=== PATIENT | female | born 1965 | race Caucasian/White ===

== ENCOUNTER 2017-02-10 09:46 | Observation (INO) | payer SELFPAY ==
[2017-02-10 09:57] VITALS: BMI 27.4
[2017-02-10] MEDS ORDERED: DEMEROL INJ IVP ONE (10:34)
[2017-02-10] MEDS ORDERED: ZOFRAN INJ 4 MG VIAL IVP ONE (10:34)
--- NOTE | 2017-02-10 10:36 | DR.GENAD ---
HPI - PCP Primary Care Physician: ASIM - HPI Comment HPI Comment: PATIENT HAVE EPIGASTRIC PAIN RADIATING TO BACK ON THE RIGHT SIDE. DIAGNOSE WITH H PYLORI AND PLACE ON MED THAT PATIENT IS TAKING, NO IMPROVEMENT. HER CONDITION IS GETTING WORSE. - Complaint/Symptoms Chief Complaint Doctors Comments: ABDOMINAL PAIN TIMES 5 DAYS WITH NAUSEA AND VOMITING. Chief Complaint:: ABDOMINAL PAIN IN UPPER GASTRIC REGION. SUDDEN ONSET LAST WEEKEND TO [facility] DOUBLED OVER WITH PAIN. H-PYLORI AND ULCER. GAVE MEDS AND SENT HOME. - Nurses notes reviewed Nurses Notes Review: Yes - Source History Provided: Patient - Mode of Arrival Mode of Arrival: Ambulatory - Timing Onset of Chief Complaint: 02/05/17 Came on: Suddenly - Duration Duration: Constant Duration: Days PMH - PMH Past Medical History: No Past Surgical History: Yes Surgical History: , Hysterectomy - Family History History of Family Medical Conditions: Yes Family Medical History: Diabetes Mellitus, Coronary Artery Disease, Hypertension - Social History Does patient currently use any type of tobacco product: Yes Have you used tobacco products in the last 12 months: Yes Type of Tobacco Use: Cigarettes How many years tobacco product used: 20 Does any household member use tobacco: No Alcohol Use: Rarely Do you use any recreational Drugs:: No Lives With: Family Lives Where: Home - infectious screening In the last 2 months have you had wt loss of >10#?: NO Have you had fever, night sweats or hemotysis?: No Have you traveled outside the country in the last 6 months?: No Isolation: Standard ROS - Review of Systems Constitutional: Weakness, Fatigue, Loss of Appetite. negative: Chills, Fever Eyes: No Symptoms Reported. negative: Eye Pain, Discharge ENTM: No Symptoms Reported. negative: Ear Pain, Nose Discharge, Nose Congestion , Throat Pain Respiratoy: No Symptoms Reported. negative: Productive Cough, Non-Productive Cough, Short of Breath, Wheezing, Hemoptysis Cardiovascular: negative: Chest Pain Gastrointestinal/Abdominal: Abdominal Pain, Nausea, Vomiting. negative: Constipation, Diarrhea Genitourinary: No Symptoms Reported. negative: Dysuria, Frequency, Hematuria Neurological: Headache, Weakness, Dizziness Musculoskeletal: Muscle Pain Integumentary: No Symptoms Reported Hematologic/Lymphatic: No Symptoms Reported Endocrine: No Symptoms Reported All Other Systems: Reviewed and Negative PE - Vital Signs Vitals: Temperature 97.7 F Pulse Rate 86 Respiratory Rate 20 Blood Pressure 142/74 O2 Sat by Pulse Oximetry 100 - General Limitations: No Limitations General Appearance: Alert - Head Head Exam: Normal Inspection - Eyes Eye exam: Normal Appearance - ENT ENT Exam: Normal External Ear Exam External Ear Exam: Normal External Inspection TM/Canal Exam: Bilateral Normal Nose Exam: Normal Nose Exam Mouth Exam: Normal Inspection Throat Exam: Normal Inspection - Neck Neck Exam: Normal Inspection - Chest Chest Inspection: Symmetric Chest Wall Rise - Respiratory Respiratory Exam: Normal Lung Sounds Bilat Respiratory Exam: Bilateral Clear to Auscultation - Cardiovascular Cardiovascular Exam: Regular Rate, Normal Rhythm, Normal Heart Sounds - Abdominal Exam Abdominal Exam: Normal Bowel Sounds, Soft, Tenderness Abdominal Tenderness: RUQ, Epigastrium - Extremities Extremities Exam: Normal Inspection - Back Back Exam: Normal Inspection - Neurologic Neurological Exam: Alert, Oriented X3 - Psychiatric Psychiatric Exam: Normal Affect, Normal Mood - Skin Skin Exam: Normal Color MDM - Additional Information Additional Information Obtained From: Family - Differential Diagnosis Differential Diagnosis: EPIGASTRIC PAIN, CHOLECYSTITIS, CHOLELITHIASIS, GASTRITIS, BOWEL OBST, DEHY Course - Treatment Treatment: SEE ORDERS. - Consultation Consultation Comments: DISCUSS PATIENT WITH DR. LANDRY. HE WILL ADMIT PATIENT. - Education/Counseling Education/Counseling: Patient, Family, Education Educated On: Treatment, Diagnosis ROR - Labs Reviewed Laboratory Results Reviewed?: Yes Result Diagrams: 02/11/17 03:40 02/11/17 03:40 Laboratory: WBC 10.0 X10^3/uL (3.6-10.0) 02/10/17 10:45 RBC 4.82 X10^6/uL (3.5-5.4) 02/10/17 10:45 Hgb 14.7 g/dL (12.0-16.0) 02/10/17 10:45 Hct 41.7 % (36.0-47.0) 02/10/17 10:45 MCV 86.6 fL (80.0-100.0) 02/10/17 10:45 MCH 30.6 pg (27.0-34.0) 02/10/17 10:45 MCHC 35.3 g/dL (33.0-35.0) H 02/10/17 10:45 RDW 12.5 % (11.6-16.5) 02/10/17 10:45 Plt Count 235 X10^3/uL (150.0-450.0) 02/10/17 10:45 MPV 9.8 fL (7.4-11.0) 02/10/17 10:45 Neut % 67.5 % (42.0-75.0) 02/10/17 10:45 Lymph % 24.0 % (21.0-51.0) 02/10/17 10:45 [place] % 7.5 % (0.0-13.0) 02/10/17 10:45 Eos % 0.5 % (0.9-2.9) L 02/10/17 10:45 Baso % 0.5 % (0.2-1.0) 02/10/17 10:45 Neut # 6.7 x10^3/uL (2.2-4.8) H 02/10/17 10:45 Lymph # 2.4 X10^3/uL (1.3-2.9) 02/10/17 10:45 [place] # 0.7 x10^3/uL (0.3-0.8) 02/10/17 10:45 Eos # 0.0 x10^3/uL (0.0-0.2) 02/10/17 10:45 Baso # 0.0 X10^3/uL (0.0-0.1) 02/10/17 10:45 Absolute Nucleated RBC 0.0 /100WBC 02/10/17 10:45 Sodium 139 mmol/L (136-145) 02/10/17 10:45 Corrected Sodium TNP 02/10/17 10:45 Potassium 3.5 mmol/L (3.5-5.1) 02/10/17 10:45 Chloride 104 mmol/L (98-107) 02/10/17 10:45 Carbon Dioxide 28.5 mmol/L (21-32) 02/10/17 10:45 BUN 9 mg/dL (7-18) 02/10/17 10:45 Creatinine 0.74 mg/dL (0.55-1.02) 02/10/17 10:45 Est GFR (MDRD) Af Amer > 60 (>60) 02/10/17 10:45 Est GFR (MDRD) Non-Af > 60 (>60) 02/10/17 10:45 Glucose 103 mg/dL (65-99) H 02/10/17 10:45 Calcium 8.8 mg/dL (8.5-10.1) 02/10/17 10:45 Corrected Calcium TNP 02/10/17 10:45 Total Bilirubin 0.80 mg/dL (0.2-1.0) 02/10/17 10:45 AST 51 Units/L (15-37) H 02/10/17 10:45 ALT 60 Units/L (12-78) 02/10/17 10:45 Alkaline Phosphatase 90 Units/L (46-116) 02/10/17 10:45 Total Protein 7.4 g/dL (6.4-8.2) 02/10/17 10:45 Albumin 3.5 g/dL (3.4-5.0) 02/10/17 10:45 Globulin 3.9 g/dL (2.5-4.5) 02/10/17 10:45 Albumin/Globulin Ratio 0.9 Ratio (1.1-2.1) L 02/10/17 10:45 Amylase 46 Units/L (25-115) 02/10/17 10:45 Lipase 148 Units/L (73-393) 02/10/17 10:45 - XRAY XRAY Interpreted by: Radiologist XRAY Findings: REPORT DISCUSS WITH PATIENT. - Diagnosis Discharge Problem: Acute cholecystitis, Dehydration Cholelithiasis Qualifiers: Cholelithiasis location: gallbladder Cholecystitis presence: with cholecystitis Cholecystitis acuity: acute Biliary obstruction: without biliary obstruction Qualified Code(s): K80.00 - Calculus of gallbladder with acute cholecystitis without obstruction Nausea & vomiting Qualifiers: Vomiting type: bilious vomiting Qualified Code(s): R11.14 - Bilious vomiting - Discharge Plan Disposition: ADMITTED INPATIENT Condition: Stable - Follow ups/Referrals - Instructions
[2017-02-10] MEDS ORDERED: DEMEROL INJ ONE (10:38)
[2017-02-10] MEDS ORDERED: ZOFRAN INJ 4 MG VIAL ONE (10:38)
[2017-02-10 11:09] LABS: ALANINE AMINOTRANSFERASE 60 Units/L (12-78); ALBUMIN 3.5 g/dL (3.4-5.0); ALKALINE PHOSPHATASE 90 Units/L (46-116); AMYLASE 46 Units/L (25-115); ASPARTATE AMINO TRANSFERASE 51 Units/L (15-37); BLOOD UREA NITROGEN 9 mg/dL (7-18); CALCIUM 8.8 mg/dL (8.5-10.1); CARBON DIOXIDE 28.5 mmol/L (21-32); CHLORIDE 104 mmol/L (98-107); CREATININE 0.74 mg/dL (0.55-1.02); GLUCOSE 103 mg/dL (65-99); LIPASE 148 Units/L (73-393); SODIUM 139 mmol/L (136-145); TOTAL PROTEIN 7.4 g/dL (6.4-8.2); eGFR BLACK RACES > 60 (>60); eGFR NON BLACK RACES > 60 (>60)
[2017-02-10 11:34] LABS: BASOPHILS % (AUTO) 0.5 % (0.2-1.0); EOSINOPHILS % (AUTO) 0.5 % (0.9-2.9); HEMATOCRIT 41.7 % (36.0-47.0); HEMOGLOBIN 14.7 g/dL (12.0-16.0); LYMPHOCYTES # (AUTO) 2.4 X10^3/uL (1.3-2.9); MEAN CORPUSCULAR HEMOGLOBIN 30.6 pg (27.0-34.0); MEAN CORPUSCULAR HGB CONC 35.3 g/dL (33.0-35.0); MEAN CORPUSCULAR VOLUME 86.6 fL (80.0-100.0); MEAN PLATELET VOLUME 9.8 fL (7.4-11.0); MONOCYTES # (AUTO) 0.7 x10^3/uL (0.3-0.8); MONOCYTES % (AUTO) 7.5 % (0.0-13.0); NEUTROPHILS # (AUTO) 6.7 x10^3/uL (2.2-4.8); NEUTROPHILS % (AUTO) 67.5 % (42.0-75.0); PLATELET COUNT 235 X10^3/uL (150.0-450.0); RED BLOOD COUNT 4.82 X10^6/uL (3.5-5.4); RED CELL DISTRIBUTION WIDTH 12.5 % (11.6-16.5)
--- NOTE | 2017-02-10 11:38 | CT ---
HISTORY: Nausea, vomiting, right upper quadrant pain Study: CT abdomen pelvis without contrast Comparison: None Technique: Axial non contrast images with coronal and sagittal reformats. Dose reduction procedures were used with MA/kv adjusted for body size. This examination is limited due to the lack of intraven ous and oral contrast. Findings: The lung bases are clear. The liver, spleen, adrenal glands, and pancreas are within normal limits t o the limitations of an unenhanced examination. The gallbladder is distended. Cholelithiasis is pres ent. There appears also to be some thickening of the gallbladder wall suggestive of developing lynne cystitis. The kidneys are unobstructed and without stones. No ureteral calculi are identified. The a ppendix is not identified with absolute certainty. There are no secondary signs of appendicitis pres ent. No enlarged intraperitoneal or retroperitoneal lymphadenopathy is identified. There are no find ings suggestive of diverticulitis or colitis. Examination of the pelvis demonstrated no evidence for pelvic masses, pelvic fluid, or pelvic lymphadenopathy. No bladder abnormality is identified. No si gnificant skeletal abnormality is identified. IMPRESSION: Distended gallbladder containing stones and demonstrating gallbladder wall thickening suggestive of developing acute cholecystitis Reported By:
[2017-02-10] MEDS ORDERED: NS 1000 ML 1,000 ML IV ONE (12:43)
[2017-02-10] MEDS ORDERED: NS 1000 ML 1,000 ML ONE (12:46)
[2017-02-10 13:23] LABS: BILIRUBIN,URINE NEGATIVE (NEGATIVE); BLOOD/HEMOGLOBIN,URINE 2+ (NEGATIVE); GLUCOSE, URINE NEGATIVE (NEGATIVE); KETONES,URINE NEGATIVE (NEGATIVE); LEUKOCYTE ESTERASE ,URINE NEGATIVE (NEGATIVE); NITRITES,URINE NEGATIVE (NEGATIVE); PROTEIN,URINE NEGATIVE (NEGATIVE); UROBILINOGEN,URINE 1+ (NORMAL)
[2017-02-10 13:41] LABS: APPEARANCE,URINE CLEAR (CLEAR); COLOR,URINE YELLOW (YELLOW)
[2017-02-10 13:42] LABS: AMORPHOUS SEDIMENT,UR TRACE /HPF (NEGATIVE); BACTERIA,URINE TRACE /HPF (NEGATIVE); SQUAMOUS EPITHELIAL CELL,UR FEW /HPF (NEGATIVE)
[2017-02-10] MEDS ORDERED: TYLENOL 325 MG TAB PO PRN (13:59)
[2017-02-10] MEDS: NS 1000 ML 1,000 ML IV SCH ×2 (14:39→20:20)
[2017-02-10] MEDS: FLAGYL IV PREMIX 500 MG BAG 500 MG/100 ML BAG IV SCH ×2 (14:52→20:16)
[2017-02-10] MEDS: DEMEROL INJ IVP PRN ×3 (14:52→23:33)
[2017-02-10] MEDS: PHENERGAN INJ 25 MG IVP PRN ×2 (14:53→21:07)
[2017-02-10] MEDS ORDERED: ZOSYN VIAL 3.375 GM 3.375 GM in NS 100 ML IV + SPIKE MINIBAG* 100 ML IV SCH (15:00)
[2017-02-10] MEDS: PROTONIX INJ 40 MG VIAL IVP SCH (15:21)
[2017-02-10] MEDS: PEPCID 20 MG IV PREMIX* 20 MG/50 ML BAG IV SCH ×2 (15:21→20:12)
[2017-02-10] MEDS ORDERED: NS 100 ML IV 100 ML IV ONE (15:45)
[2017-02-10] MEDS: CIPRO IV 400 MG PREMIX* 400 MG/200 ML IV.SOLN. IV SCH (20:18)
[2017-02-11] MEDS: NS 1000 ML 1,000 ML IV SCH ×4 (01:05→21:34)
[2017-02-11] MEDS: FLAGYL IV PREMIX 500 MG BAG 500 MG/100 ML BAG IV SCH ×4 (03:05→20:14)
[2017-02-11] MEDS: PHENERGAN INJ 25 MG IVP PRN ×3 (04:33→22:10)
[2017-02-11] MEDS: DEMEROL INJ IVP PRN ×3 (04:34→13:02)
[2017-02-11 05:34] LABS: BASOPHILS # (AUTO) 0.1 X10^3/uL (0.0-0.1); BASOPHILS % (AUTO) 0.8 % (0.2-1.0); EOSINOPHILS # (AUTO) 0.1 x10^3/uL (0.0-0.2); EOSINOPHILS % (AUTO) 1.6 % (0.9-2.9); HEMOGLOBIN 13.1 g/dL (12.0-16.0); LYMPHOCYTES # (AUTO) 2.5 X10^3/uL (1.3-2.9); LYMPHOCYTES % (AUTO) 34.3 % (21.0-51.0); MEAN CORPUSCULAR HEMOGLOBIN 31.1 pg (27.0-34.0); MEAN CORPUSCULAR HGB CONC 35.4 g/dL (33.0-35.0); MEAN CORPUSCULAR VOLUME 87.8 fL (80.0-100.0); MEAN PLATELET VOLUME 9.7 fL (7.4-11.0); MONOCYTES # (AUTO) 0.7 x10^3/uL (0.3-0.8); MONOCYTES % (AUTO) 9.3 % (0.0-13.0); PLATELET COUNT 199 X10^3/uL (150.0-450.0); RED BLOOD COUNT 4.22 X10^6/uL (3.5-5.4); WHITE BLOOD COUNT 7.4 X10^3/uL (3.6-10.0)
[2017-02-11 05:46] LABS: ALANINE AMINOTRANSFERASE 51 Units/L (12-78); ALBUMIN 2.8 g/dL (3.4-5.0); ALKALINE PHOSPHATASE 78 Units/L (46-116); AMYLASE 39 Units/L (25-115); ASPARTATE AMINO TRANSFERASE 34 Units/L (15-37); BLOOD UREA NITROGEN 6 mg/dL (7-18); CARBON DIOXIDE 28.4 mmol/L (21-32); CHLORIDE 104 mmol/L (98-107); CREATININE 0.73 mg/dL (0.55-1.02); GLUCOSE 100 mg/dL (65-99); LIPASE 135 Units/L (73-393); SODIUM 139 mmol/L (136-145); TOTAL PROTEIN 6.4 g/dL (6.4-8.2); eGFR BLACK RACES > 60 (>60); eGFR NON BLACK RACES > 60 (>60)
[2017-02-11] MEDS: PROTONIX INJ 40 MG VIAL IVP SCH (08:22)
[2017-02-11] MEDS: PEPCID 20 MG IV PREMIX* 20 MG/50 ML BAG IV SCH ×2 (08:22→20:13)
[2017-02-11] MEDS: CIPRO IV 400 MG PREMIX* 400 MG/200 ML IV.SOLN. IV SCH ×2 (08:22→20:15)
[2017-02-11] MEDS: ZOFRAN INJ 4 MG VIAL IVP PRN (08:23)
[2017-02-11] MEDS ORDERED: NORCURON INJ 10 MG VIAL ONE (09:43)
[2017-02-11] MEDS ORDERED: ROBINUL ONE (09:43)
[2017-02-11] MEDS ORDERED: DIPRIVAN VIAL ONE (09:43)
[2017-02-11] MEDS ORDERED: DYLOJECT INJ ONE (09:43)
[2017-02-11] MEDS ORDERED: XYLOCAINE 2 % (PLAIN) ONE (09:43)
[2017-02-11] MEDS ORDERED: QUELICIN (OR ANECTINE) ONE (09:43)
[2017-02-11] MEDS ORDERED: VERSED ONE (09:43)
[2017-02-11] MEDS ORDERED: NEOSTIGMINE INJ ONE (09:43)
[2017-02-11] MEDS ORDERED: ZOFRAN INJ 4 MG VIAL ONE (09:43)
[2017-02-11] MEDS ORDERED: SUPRANE IN ONE (09:43)
--- NOTE | 2017-02-11 10:40 | DR.H&P ---
H&P - History & Physical for Day of: H&P Date: 02/10/17 - Chief Complaint Chief Complaint: abdominal pain - Allergies Allergies/Adverse Reactions: Allergies Allergy/AdvReac Type Severity Reaction Status Date / Time bee pollen Allergy Intermediate Verified 02/10/17 09:57 - History of Present Illness History of Present Illness: Patient is a 51 yo female who presented to the emergency room with complaints of epigastric pain that is radiating to her back on the right side, patient was previously diagnosed with h-pylori and was placed on placed on treatment for this and has not had any improvement. She also has complaints of nausea and vomiting. Patient has a history of GERD. On arrival to the ER vital signs were 97.7. 86, 20, 100%, 142/74. Labs are within normal limits with the exception of MCHC 35.3, Eos% 0.5, Neut# 6.7, Glucose 103 , AST 51, Albumin/Globulin Ratio 0.9. Abdomen/Pelvis CT showed distended gallbladder containing stones and demonstrating gallbladder wall thickening suggestive of developing acute cholecystitis. Patient was admitted with diagnosis of cholecystitis. Patient started on Tylenol 650mg Po Q4hr PRN, Cipro 400mg IV Q12hr, Pepcid 20mg IV Q12, Demerol 25mg IV q4hr PRN, Flagyl 500mg IV Q6hr, Zofran 4mg IV Q6hr PRN, Protonix 40mg IV Daily, Phenergan 12.5mg IV Q6hr PRN, NS@125ml/hr. We are going to continue to monitor patient and keep her pain under control and administer IV Antibiotics. We will follow up with repeat labs in the am. - Past Medical History Past Medical History: GERD - Past Surgical History Surgical History: , Hysterectomy - Family History Family Medical History: Diabetes Mellitus, Coronary Artery Disease, Hypertension - Social History Does patient currently use any type of tobacco product: Yes Have you used tobacco products in the last 12 months: Yes Type of Tobacco Use: Cigarettes How many years tobacco product used: 20 Does any household member use tobacco: No Alcohol Use: Rarely Drug Use: None - Medications Home Medications: Amoxicillin [AMOXIL CAP 500 MG *] 1 cap PO DAILY 02/10/17 [History Confirmed ] Clarithromycin [CLARITHROMYCIN 500 MG TAB *] 1 tab PO Q12H 02/10/17 [History Confirmed 02/10/17] Esomeprazole Magnesium [Nexium 20 mg] 1 cap PO Q12H 02/10/17 [History Confirmed 02/10/17] - Review of Systems Constitutional: Weakness Eyes: No Symptoms Reported ENT: No Symptoms Reported Respiratory: No Symptoms Reported Cardiovascular: No Symptoms Reported Gastrointestinal: Nausea, Vomiting, Abdominal Pain Genitourinary: No Symptoms Reported Musculoskeletal: No Symptoms Reported Skin: No Symptoms Reported Neurological: No Symptoms Reported - Physical Exam Vital Signs: 97.7. 86, 20, 100%, 142/74 Oriented: Normal Eyes: Normal Ear: Normal Nose: Normal Throat: Normal Respiratory: Clear Throughout Cardiovascular: Normal : Normal Auscultation: Bowel Sounds: Increased Palpation: Normal Tenderness: RUQ, Epigastric Skin: Normal Musculoskeletal: Normal Psychiatric: Normal Mood Description: Calm, Appropriate Affect: Normal Speech Pattern: Clear, Appropriate - Assessment/Plan (1) Acute cholecystitis Status: Acute Plan: Cipro 400mg IV Q12hr, Pepcid 20mg IV Q12, Demerol 25mg IV q4hr PRN, Flagyl 500mg IV Q6hr, Zofran 4mg IV Q6hr PRN, Protonix 40mg IV Daily, Phenergan 12.5mg IV Q6hr PRN, NS@125ml/hr (2) Cholelithiasis Qualifiers: Cholelithiasis location: gallbladder Cholecystitis presence: with cholecystitis Cholangitis presence: C Cholecystitis acuity: acute Cholangitis acuity: C Biliary obstruction: without biliary obstruction Qualified Code(s): K80.00 - Calculus of gallbladder with acute cholecystitis without obstruction Status: Acute Plan: Cipro 400mg IV Q12hr, Pepcid 20mg IV Q12, Demerol 25mg IV q4hr PRN, Flagyl 500mg IV Q6hr, Zofran 4mg IV Q6hr PRN, Protonix 40mg IV Daily, Phenergan 12.5mg IV Q6hr PRN, NS@125ml/hr (3) Nausea & vomiting Qualifiers: Vomiting type: bilious vomiting Vomiting Intractability: V Qualified Code (s): R11.14 - Bilious vomiting Status: Acute Plan: Zofran 4mg IV Q6hr PRN, Protonix 40mg IV Daily, Phenergan 12.5mg IV Q6hr PRN,
--- NOTE | 2017-02-11 10:41 | PCM.PROG ---
Progress Note - Progress Note for Day of Date: 02/11/17 - Subjective Subjective: Patient states she is still experiencing a good bit of pain and nausea, Physical exam reveals epigastric and right upper quadrant tenderness. We are going to make a surgical consult to have her gallbladder removed. Vital signs this am 98.1, 68, 16, 96%, 102/57. Labs within normal limits with the exception of MCHC 35.4, BUN 6, Glucose 100, Calcium 8.0, Albumin 2.8, Albumin/ globulin ratio 0.8. We will follow up with patient in the am with repeat labs and continue current treatment plan and await surgical consult. - Past Medical Family Social History Past Med/Fam/Surg Hx: No changes since H&P Allergies: Allergies bee pollen Allergy (Intermediate, Verified 02/10/17 09:57) BEE STING - Review of Systems ROS: No change since H&P - Vital Signs and I&O's Vital Signs: 98.1, 68, 16, 96%, 102/57 Intake and Output: Intake & Output 02/08/17 02/09/17 02/10/17 02/11/17 11:59 11:59 11:59 11:59 Intake Total 2579 Balance 2579 - Physical Exam Oriented: Normal Eyes: Normal Ear: Normal Nose: Normal Throat: Normal Cardiovascular: Normal : Normal Auscultation: Bowel Sounds: Increased Tenderness: RUQ, Epigastric Skin: Normal Musculoskeletal: Normal Psychiatric: Normal Mood Description: Calm, Appropriate Affect: Normal Speech Pattern: Clear, Appropriate - Laboratory and Diagnostics Result Diagrams: 02/11/17 03:40 02/11/17 03:40 Labs: Laboratory WBC 7.4 X10^3/uL (3.6-10.0) 02/11/17 03:40 RBC 4.22 X10^6/uL (3.5-5.4) 02/11/17 03:40 Hgb 13.1 g/dL (12.0-16.0) 02/11/17 03:40 Hct 37.0 % (36.0-47.0) 02/11/17 03:40 MCV 87.8 fL (80.0-100.0) 02/11/17 03:40 MCH 31.1 pg (27.0-34.0) 02/11/17 03:40 MCHC 35.4 g/dL (33.0-35.0) H 02/11/17 03:40 RDW 12.0 % (11.6-16.5) 02/11/17 03:40 Plt Count 199 X10^3/uL (150.0-450.0) 02/11/17 03:40 MPV 9.7 fL (7.4-11.0) 02/11/17 03:40 Neut % 54.0 % (42.0-75.0) 02/11/17 03:40 Lymph % 34.3 % (21.0-51.0) 02/11/17 03:40 [place] % 9.3 % (0.0-13.0) 02/11/17 03:40 Eos % 1.6 % (0.9-2.9) 02/11/17 03:40 Baso % 0.8 % (0.2-1.0) 02/11/17 03:40 Neut # 4.0 x10^3/uL (2.2-4.8) 02/11/17 03:40 Lymph # 2.5 X10^3/uL (1.3-2.9) 02/11/17 03:40 [place] # 0.7 x10^3/uL (0.3-0.8) 02/11/17 03:40 Eos # 0.1 x10^3/uL (0.0-0.2) 02/11/17 03:40 Baso # 0.1 X10^3/uL (0.0-0.1) 02/11/17 03:40 Absolute Nucleated RBC 0.1 /100WBC 02/11/17 03:40 Sodium 139 mmol/L (136-145) 02/11/17 03:40 Corrected Sodium TNP 02/11/17 03:40 Potassium 3.7 mmol/L (3.5-5.1) 02/11/17 03:40 Chloride 104 mmol/L (98-107) 02/11/17 03:40 Carbon Dioxide 28.4 mmol/L (21-32) 02/11/17 03:40 BUN 6 mg/dL (7-18) L 02/11/17 03:40 Creatinine 0.73 mg/dL (0.55-1.02) 02/11/17 03:40 Est GFR (MDRD) Af Amer > 60 (>60) 02/11/17 03:40 Est GFR (MDRD) Non-Af > 60 (>60) 02/11/17 03:40 Glucose 100 mg/dL (65-99) H 02/11/17 03:40 Calcium 8.0 mg/dL (8.5-10.1) L 02/11/17 03:40 Corrected Calcium 9.0 mg/dL (8.5-10.1) 02/11/17 03:40 Total Bilirubin 0.60 mg/dL (0.2-1.0) 02/11/17 03:40 AST 34 Units/L (15-37) 02/11/17 03:40 ALT 51 Units/L (12-78) 02/11/17 03:40 Alkaline Phosphatase 78 Units/L (46-116) 02/11/17 03:40 Total Protein 6.4 g/dL (6.4-8.2) 02/11/17 03:40 Albumin 2.8 g/dL (3.4-5.0) L 02/11/17 03:40 Globulin 3.6 g/dL (2.5-4.5) 02/11/17 03:40 Albumin/Globulin Ratio 0.8 Ratio (1.1-2.1) L 02/11/17 03:40 Amylase 39 Units/L (25-115) 02/11/17 03:40 Lipase 135 Units/L (73-393) 02/11/17 03:40 Specimen Type Clean catch urine 02/10/17 13:12 Urine Color Yellow (YELLOW) 02/10/17 13:12 Urine Appearance Clear (CLEAR) 02/10/17 13:12 Urine pH 6.0 (5.0 - 8.0) 02/10/17 13:12 Ur Specific [place] 1.020 (1.000-1.030) 02/10/17 13:12 Urine Protein Negative (NEGATIVE) 02/10/17 13:12 Urine Glucose (UA) Negative (NEGATIVE) 02/10/17 13:12 Urine Ketones Negative (NEGATIVE) 02/10/17 13:12 Urine Occult Blood 2+ (NEGATIVE) 02/10/17 13:12 Urine Nitrite Negative (NEGATIVE) 02/10/17 13:12 Urine Bilirubin Negative (NEGATIVE) 02/10/17 13:12 Urine Urobilinogen 1+ (NORMAL) 02/10/17 13:12 Ur Leukocyte Esterase Negative (NEGATIVE) 02/10/17 13:12 Urine RBC 2-4 /HPF (NEGATIVE) 02/10/17 13:12 Urine WBC None seen /HPF (NEGATIVE) 02/10/17 13:12 Ur Squamous Epith Cells Few /HPF (NEGATIVE) 02/10/17 13:12 Amorphous Sediment Trace /HPF (NEGATIVE) 02/10/17 13:12 Urine Bacteria Trace /HPF (NEGATIVE) 02/10/17 13:12 Ur Culture Indicated? No/not indicated 02/10/17 13:12 - Plan (1) Acute cholecystitis Status: Acute Plan: Cipro 400mg IV Q12hr, Pepcid 20mg IV Q12, Demerol 25mg IV q4hr PRN, Flagyl 500mg IV Q6hr, Zofran 4mg IV Q6hr PRN, Protonix 40mg IV Daily, Phenergan 12.5mg IV Q6hr PRN, NS@125ml/hr, surgical consult (2) Cholelithiasis Status: Acute Qualifiers: Cholelithiasis location: gallbladder Cholecystitis presence: with cholecystitis Cholangitis presence: C Cholecystitis acuity: acute Cholangitis acuity: C Biliary obstruction: without biliary obstruction Qualified Code(s): K80.00 - Calculus of gallbladder with acute cholecystitis without obstruction Plan: Cipro 400mg IV Q12hr, Pepcid 20mg IV Q12, Demerol 25mg IV q4hr PRN, Flagyl 500mg IV Q6hr, Zofran 4mg IV Q6hr PRN, Protonix 40mg IV Daily, Phenergan 12.5mg IV Q6hr PRN, NS@125ml/hr, surgical consult (3) Nausea & vomiting Status: Acute Qualifiers: Vomiting type: bilious vomiting Vomiting Intractability: V Qualified Code (s): R11.14 - Bilious vomiting Plan: Zofran 4mg IV Q6hr PRN, Protonix 40mg IV Daily, Phenergan 12.5mg IV Q6hr PRN,
[2017-02-11] MEDS ORDERED: MILK OF MAGNESIA PO PRN (12:45)
[2017-02-11] MEDS ORDERED: COLACE CAP 100 MG PO PRN (12:45)
[2017-02-11] MEDS ORDERED: LR 1000 ML IV 1,000 ML IV ONE ×2 (14:36→17:44)
[2017-02-11] MEDS ORDERED: ANCEF VIAL 1 GM ONE ×2 (14:36→15:47)
[2017-02-11] MEDS ORDERED: NS 50 ML IV + SPIKE MINIBAG* 50 ML IV ONE ×2 (14:36→15:47)
--- NOTE | 2017-02-11 14:37 | RAD ---
HISTORY: Preop cholecystectomy Study: Chest two-view Comparison: None Findings: The trachea is midline. The cardiac silhouette is unremarkable. The lungs are clear without focal infiltrate or effusion. The bony thorax is unremarkable. IMPRESSION: 1. No acute cardiopulmonary disease. Reported By:
[2017-02-11] MEDS ORDERED: FENTANYL INJ 250 mcg ONE (14:48)
[2017-02-11] MEDS ORDERED: XYLOCAINE 1 % (PLAIN) ONE (16:06)
[2017-02-11] MEDS ORDERED: MARCAINE 0.25% WITH EPI IJ ONE (16:06)
[2017-02-11] MEDS ORDERED: NS IRRIGATION 3000 ML 3,000 ML IR ONE (16:45)
[2017-02-11] MEDS ORDERED: BENADRYL INJ 50 MG VIAL IVP PRN (18:07)
[2017-02-11] MEDS ORDERED: REGLAN INJ 10 MG VIAL IVP PRN (18:07)
[2017-02-11] MEDS ORDERED: ZOFRAN INJ 4 MG VIAL IVP PRN (18:07)
[2017-02-11] MEDS ORDERED: PHENERGAN INJ 25 MG IVP PRN (18:07)
[2017-02-11] MEDS ORDERED: DILAUDID INJ IVP PRN (18:07)
[2017-02-11] MEDS: PERCOCET TAB 5/325 MG PO PRN (22:10)
[2017-02-12] MEDS: FLAGYL IV PREMIX 500 MG BAG 500 MG/100 ML BAG IV SCH ×2 (02:58→08:30)
[2017-02-12] MEDS: PERCOCET TAB 5/325 MG PO PRN ×2 (05:25→09:26)
[2017-02-12] MEDS: ZOFRAN INJ 4 MG VIAL IVP PRN (05:25)
[2017-02-12] MEDS: NS 1000 ML 1,000 ML IV SCH (05:57)
[2017-02-12 06:10] LABS: BASOPHILS # (AUTO) 0.1 X10^3/uL (0.0-0.1); BASOPHILS % (AUTO) 0.6 % (0.2-1.0); EOSINOPHILS # (AUTO) 0.1 x10^3/uL (0.0-0.2); EOSINOPHILS % (AUTO) 1.3 % (0.9-2.9); HEMATOCRIT 34.3 % (36.0-47.0); LYMPHOCYTES # (AUTO) 2.6 X10^3/uL (1.3-2.9); LYMPHOCYTES % (AUTO) 32.1 % (21.0-51.0); MEAN CORPUSCULAR HEMOGLOBIN 30.5 pg (27.0-34.0); MEAN CORPUSCULAR HGB CONC 35.1 g/dL (33.0-35.0); MONOCYTES # (AUTO) 0.7 x10^3/uL (0.3-0.8); NEUTROPHILS # (AUTO) 4.7 x10^3/uL (2.2-4.8); PLATELET COUNT 207 X10^3/uL (150.0-450.0); RED BLOOD COUNT 3.94 X10^6/uL (3.5-5.4); RED CELL DISTRIBUTION WIDTH 12.5 % (11.6-16.5); WHITE BLOOD COUNT 8.2 X10^3/uL (3.6-10.0)
[2017-02-12 06:28] LABS: ALANINE AMINOTRANSFERASE 49 Units/L (12-78); ALBUMIN 2.7 g/dL (3.4-5.0); ALKALINE PHOSPHATASE 82 Units/L (46-116); ASPARTATE AMINO TRANSFERASE 31 Units/L (15-37); BLOOD UREA NITROGEN 6 mg/dL (7-18); CALCIUM 8.4 mg/dL (8.5-10.1); CARBON DIOXIDE 27.9 mmol/L (21-32); CHLORIDE 107 mmol/L (98-107); COR CA(FOR HYPOALB) 9.4 mg/dL (8.5-10.1); CREATININE 0.73 mg/dL (0.55-1.02); GLUCOSE 96 mg/dL (65-99); SODIUM 142 mmol/L (136-145); TOTAL PROTEIN 6.1 g/dL (6.4-8.2); eGFR BLACK RACES > 60 (>60); eGFR NON BLACK RACES > 60 (>60)
[2017-02-12 06:46] LABS: PLATELET MORPHOLOGY COMMENT NORMAL (NORMAL)
[2017-02-12] MEDS: PEPCID 20 MG IV PREMIX* 20 MG/50 ML BAG IV SCH (08:00)
[2017-02-12] MEDS: PROTONIX INJ 40 MG VIAL IVP SCH (08:00)
[2017-02-12] MEDS: PHENERGAN INJ 25 MG IVP PRN (09:35)
[2017-02-12] MEDS: CIPRO IV 400 MG PREMIX* 400 MG/200 ML IV.SOLN. IV SCH (09:37)
[2017-02-12 12:25] VITALS: BP 112/55
--- NOTE | 2017-02-12 14:29 | DR.CARTERD ---
- Discharge Summary for: Discharge Summary for Date of:: 02/12/17 - Admission Date Date of Admission: 02/10/17 - Admission Diagnoses Admission Diagnosis: Acute cholecystitis. Abdominal pain. GERD. H-Pylori - Discharge Date Discharge Date: 02/12/17 - Discharge Diagnoses Discharge Diagnosis: S/P Laproscopic cholecystectomy Acute cholecystitis Abdominal pain GERD H-Pylori - Hospital Course Hospital Course: Patient is a 51 yo female who presented to the emergency room with complaints of epigastric pain that is radiating to her back on the right side, patient was previously diagnosed with h-pylori and was placed on placed on treatment for this and has not had any improvement. She also has complaints of nausea and vomiting. Patient has a history of GERD. On arrival to the ER vital signs were 97.7. 86, 20, 100%, 142/74. Labs are within normal limits with the exception of MCHC 35.3, Eos% 0.5, Neut# 6.7, Glucose 103, AST 51, Albumin/Globulin Ratio 0.9. Abdomen/Pelvis CT showed distended gallbladder containing stones and demonstrating gallbladder wall thickening suggestive of developing acute cholecystitis. Patient was admitted with diagnosis of cholecystitis. Patient started on Tylenol 650mg Po Q4hr PRN, Cipro 400mg IV Q12hr, Pepcid 20mg IV Q12, Demerol 25mg IV q4hr PRN, Flagyl 500mg IV Q6hr, Zofran 4mg IV Q6hr PRN, Protonix 40mg IV Daily, Phenergan 12.5mg IV Q6hr PRN, NS@125ml/hr. We are going to continue to monitor patient and keep her pain under control and administer IV Antibiotics. We will follow up with repeat labs in the am. The following day after admission we consulted Dr. Gross with general surgery who performed a laproscopic cholecystectomy. This am the patient is doing much better she states that she feels much better that she is just a little sore. Vital signs this am 98.3, 68, 18, 93%, 124/33. Labs are within normal limits with the exception of HHCT 34.3, MCHC 35.1, BUN 6, Calcium 8.4, Total Protein 6.1, Albumin 2.7, Albumin/globulin ratio 0.8. We are going to discharge her home in stable condition. She is to follow up with Dr. Gross for her post op visit. Labs: Labs are within normal limits with the exception of HHCT 34.3, MCHC 35.1, BUN 6 , Calcium 8.4, Total Protein 6.1, Albumin 2.7, Albumin/globulin ratio 0.8. - Discharge Medications Discharge Medications: Ondansetron HCl [ZOFRAN TAB 4 MG *] 4 mg PO Q8H PRN #30 tab 02/12/17 [Rx] Pantoprazole Sodium [PROTONIX INJ 40 MG VIAL *] 40 mg IVP DAILY #30 vial [Rx] - Discharge Disposition Discharge Disposition: Home
== END 2017-02-12 12:30 | disposition home or self-care (01) | DRG 357 ==
LOC: ER 10:16 → ICU 13:48
PROVIDERS: ADMIT Internal Medicine; ATTEND Internal Medicine
PROC: 0FT44ZZ Resection of Gallbladder, Percutaneous Endoscopic Approach (ICD-10-PCS; principal; 2017-02-11 15:00)
DX: R10.11 Right upper quadrant pain (principal); R11.14 Bilious vomiting; E86.0 Dehydration; K80.00 Calculus of gallbladder with acute cholecystitis without obstruction; K21.9 Gastro-esophageal reflux disease without esophagitis; B96.81 Helicobacter pylori [H. pylori] as the cause of diseases classified elsewhere
CPT/HCPCS: 36415; 71020; 74176; 80053; 81001; 82150; 83690; 85025; 93005; 96365; 96374; 96375; 99284; A4216; A4222; C9113; S0020; S0028; S0030; G0378; J0330; J0690; J0744; J2001; J2175; J2250; J2405; J2543; J2550; J2710; J3010; J3490; J7120